=== PATIENT | female | born 1955 | race Caucasian/White ===

== ENCOUNTER 2017-12-04 12:11 | Emergency (ER) | payer MEDICARE, MEDICAID ==
[~2017-12-04] VITALS: Ht 175.3 cm; Wt 93.0 kg
[2017-12-04] MEDS ORDERED: ketorolac trometh inj. 60 MG/2 ML VIAL IM ONE (13:05)
[2017-12-04] MEDS ORDERED: cyclobenzaprine 10mg tablet PO ONE (13:05)
[2017-12-04] MEDS ORDERED: DICL100G15 TOP (13:07)
[2017-12-04] MEDS ORDERED: CYCL-1 PO (13:07)
[2017-12-04 13:25] VITALS: BP 135/65
== END 2017-12-04 13:27 | disposition home or self-care (01) ==
LOC: ER 12:14
DX: M54.6 Pain in thoracic spine (principal); J44.9 Chronic obstructive pulmonary disease, unspecified; Z87.891 Personal history of nicotine dependence; Z88.0 Allergy status to penicillin; Z88.2 Allergy status to sulfonamides
CPT/HCPCS: 71100; 96372; 99284; J1885